=== PATIENT | female | born 1970 | race Two or more races ===

== ENCOUNTER → 2024-12-03 06:23 | Outpatient (CLI) | payer OTHER ==
[2024-12-03 07:31] LABS: BUN CREA RATIO 19.0 (7.0-25.0); CHOL HDL RATIO 3.8 (0-5.0); CREATININE SERUM 0.84 mg/dL (0.55-1.02); GFR 70.65; GLUCOSE FASTING 107.0 mg/dL (65-100); HDL 48.0 mg/dl (40-60); LDL 113.0 mg/dl (0-130); OSMOLALITY SERUM 285.0 MOSM/KG (275-295); VLDL 21.0 (0-39)
== END | disposition home or self-care (01) ==
LOC: LAB 06:23
PROVIDERS: ATTEND General Practice
DX: E03.9 Hypothyroidism, unspecified (principal); E11.9 Type 2 diabetes mellitus without complications; E78.5 Hyperlipidemia, unspecified

== ENCOUNTER 2024-12-03 07:05 | Outpatient (CLI) | payer OTHER | END 2024-12-03 07:12 | disposition home or self-care (01) | LOC: MAMO-SONO 07:05 | PROVIDERS: ATTEND General Practice | DX: Z12.31 Encounter for screening mammogram for malignant neoplasm of breast (principal) ==

== ENCOUNTER 2025-02-08 10:43 | Inpatient (IN) | payer OTHER ==
[~2025-02-08] VITALS: Ht 160 cm; Wt 81.6 kg
--- NOTE | 2025-02-08 11:56 | NUR ---
PACIENTE FEMINA, S/V EN PARAMETROS NOPRMALES/ C/C DOLOR EN MANO DERECHA, SE UBCA EN FT PARA SER EVALUADA.
[2025-02-08] MEDS ORDERED: ACETAMINOPHEN 500 MG GEL..CAP PO ONE (12:45)
[2025-02-08] MEDS ORDERED: KETOROLAC TROMETHAMINE 15 MG VIAL IU ONE (12:45)
[2025-02-08] MEDS ORDERED: CEFTRIAXONE SODIUM 2,000 MG in 0.9 % SODIUM CHLORIDE 100 ML IV ONE (12:45)
[2025-02-08] MEDS ORDERED: VANCOMYCIN HCL 1,000 MG VIAL IV ONE (12:45)
--- NOTE | 2025-02-08 17:32 | NUR ---
SE EDUCA PACIENTE SOBRE EL [place] MEDICO Y ESTA REFIERE ENTENDER. SE CANALIZA Y SE ADMINISTRA MEDICAMENTOS CLIFF ORDEN MEDICA. SE [facility] Y SE ENVIAN.
[2025-02-08 17:49] LABS: URINE APPEARANCE Clear; URINE BILIRRUBIN Negative (NEGATIVE); URINE BLOOD Large; URINE COLOR Yellow; URINE GLUCOSE Negative (NEGATIVE); URINE KETONE Trace (NEGATIVE); URINE LEUKOCYTE Negative; URINE NITRATE Negative; URINE PROTEIN Trace (NEGATIVE); URINE UROBILINOGEN 1.0 E.U./dl
[2025-02-08 17:50] LABS: URINE BACTERIA 20.3 uL (0.0-1933); URINE EPITHELIAL CELLS 20.3 uL (0.0-38.8); URINE RBC 116.0 uL (0.0-20.8); URINE WBC 5.0 uL (0.0-23.2)
[2025-02-08 17:53] LABS: BASO % 0.4 % (0.1-1.2); EOS # 0.07 (0.04-0.54); EOS % 0.3 % (0.7-7.0); LYMPH # 2.26 (1.18-3.74); LYMPH % 11.1 % (19.3-53.1); MEAN PLATELET VOLUME 9.40 fl (9.4-12.4); MONO # 1.20 (0.24-0.82); MONO % 5.9 % (4.7-12.5); NEUT # 16.65 (1.56-6.13); NEUT % 81.7 % (34.0-71.1); RED CELL DISTRIBUTION WIDTH 13.8 % (11.6-14.4)
[2025-02-08 17:58] LABS: URINE CAST 0.14 uL (0.0-1.40)
[2025-02-08 18:14] LABS: INR 1.05
[2025-02-08 18:20] LABS: ALT/SGPT 31.0 U/L (12-78); AST/SGOT 23.0 U/L (15-37); BILIRUBIN TOTAL 0.42 mg/dL (0.3-1.2); BUN CREA RATIO 14.0 (7.0-25.0); CREATININE SERUM 0.72 mg/dL (0.55-1.02); GFR 84.41; GLOBULINA 4.1 G/DL (2.4-3.5); GLUCOSE FASTING 122.0 mg/dL (65-100); OSMOLALITY SERUM 285.0 MOSM/KG (275-295)
[2025-02-08 18:30] LABS: ERYTHROCYTE SEDIMENTATION RATE 97 mm/hr (0-30)
[2025-02-08] MEDS ORDERED: FAMOTIDINE/PF 20 MG in 0.9 % SODIUM CHLORIDE 8 ML IV PUSH SCH (18:59)
[2025-02-08] MEDS ORDERED: CEFTRIAXONE SODIUM 2,000 MG in 0.9 % SODIUM CHLORIDE 100 ML IV SCH (18:59)
[2025-02-08] MEDS ORDERED: DEXTROSE 50 % IN WATER 0.5 G/ML DISP.SYRIN IV PRN (19:00)
[2025-02-08] MEDS ORDERED: INSULIN LISPRO 1,000 UNIT/10 ML UNITS SUBCUTANEO PRN (19:00)
[2025-02-08] MEDS ORDERED: ACETAMINOPHEN 325 MG TABLET PO PRN (19:00)
[2025-02-08] MEDS ORDERED: KETOROLAC TROMETHAMINE 30 MG VIAL IV PRN (19:15)
[2025-02-08] MEDS ORDERED: ACETAMINOPHEN 500 MG GEL..CAP PO PRN (19:15)
[2025-02-08 22:36] VITALS: BP 133/76; O2SAT 99
[2025-02-09 03:12] VITALS: BP 108/74; O2SAT 95
[2025-02-09 06:13] LABS: BASO % 0.7 % (0.1-1.2); EOS # 0.16 (0.04-0.54); EOS % 1.0 % (0.7-7.0); LYMPH # 2.70 (1.18-3.74); LYMPH % 17.6 % (19.3-53.1); MEAN PLATELET VOLUME 9.70 fl (9.4-12.4); MONO # 1.09 (0.24-0.82); MONO % 7.1 % (4.7-12.5); NEUT # 11.21 (1.56-6.13); NEUT % 73.3 % (34.0-71.1); RED CELL DISTRIBUTION WIDTH 13.6 % (11.6-14.4)
[2025-02-09 09:40] VITALS: BP 95/73; O2SAT 98
[2025-02-09 17:43] VITALS: BP 116/74; O2SAT 97
[2025-02-09] MEDS ORDERED: LINEZOLID 600 MG TABLET PO SCH (21:00)
[2025-02-10 01:19] VITALS: BP 93/62; O2SAT 98
[2025-02-10 08:43] VITALS: BP 93/57; O2SAT 99
[2025-02-10 18:19] VITALS: BP 125/81; O2SAT 98
[2025-02-11 02:03] VITALS: BP 97/60; O2SAT 96
[2025-02-11 08:48] VITALS: BP 125/90; O2SAT 97
== END 2025-02-11 15:51 | disposition home or self-care (01) | DRG 603 ==
LOC: ER 10:44 → MEDI 19:14 → SEC-K 19:14 → MEDI 20:19
PROVIDERS: General Practice; ADMIT Internal Medicine; ATTEND Internal Medicine
PROC: BP3CZZZ Magnetic Resonance Imaging (MRI) of Right Hand/Finger Joint (ICD-10-PCS; principal; 2025-02-09)
DX: L03.113 Cellulitis of right upper limb (principal); D72.828 Other elevated white blood cell count
CPT/HCPCS: 73218